=== PATIENT | male | born 1980 | race African-American/Black ===

== ENCOUNTER 2017-01-24 01:37 | Emergency (ER) | payer OTHER ==
[~2017-01-24] VITALS: Ht 175.3 cm; Wt 68.0 kg
[~2017-01-24 01:37] MED LIST: ACETAMINOPHEN-1 EAC1 PO; APAP/CODEI12 MG/5 M1 PO; AUGMENTIN 875875 M1 PO; AUGMENTIN 875875 MG PO; AZITHROMYCIN 2250 MG PO; BACTRIM DS TAB1 EACH PO; BACTROBAN NASAL1 GM NASAL; CHERACOL COUGH120 ML PO; CLEOCIN HCL300 MG PO; DOXYCYCLINE 10100 MG PO; FIORICET-COD 31 EACH PO; FLEXERIL; HIBICLENS120 ML TP; IBUPROFEN 400400 M2 PO; IBUPROFEN 600600 M1 PO; IBUPROFEN 800800 M1 PO; MEDROLDOSEPACK PO; NAPROSYN500 MG PO; NOHOMEMEDICATIONS; NORCO 5-325 TA1 EACH PO; NYQUIL D COLD295 ML PO; PEPCID40 MG PO; PREDNISONE 20 M20 MG PO; PRILOSEC20 MG PO; PROBIOTIC1 EAC1 PO; PROTONIX40 MG PO; PSEUDOEPHEDRIN120 M1 PO; SALINE NASAL SP30 ML NS; THERAFLU COL245.5 ML PO; VALIUM5 MG PO; ZPAK PO
[2017-01-24 02:14] VITALS: BP 110/69
== END 2017-01-24 02:25 | disposition short-term general hospital (02) ==
LOC: ER 01:37
DX: S82.451B Displaced comminuted fracture of shaft of right fibula, initial encounter for open fracture type I or II (principal); K21.9 Gastro-esophageal reflux disease without esophagitis; F17.210 Nicotine dependence, cigarettes, uncomplicated; F12.10 Cannabis abuse, uncomplicated; W34.00XA Accidental discharge from unspecified firearms or gun, initial encounter; Y93.89 Activity, other specified; Y92.89 Other specified places as the place of occurrence of the external cause; Y99.9 Unspecified external cause status

== ENCOUNTER 2017-02-13 11:29 | Emergency (ER) | payer OTHER ==
[~2017-02-13] VITALS: Ht 175.3 cm; Wt 70.3 kg
[2017-02-13 12:06] LABS: ABSOLUTE NEUTROPHILS 11.6 thou/uL (1.4-8.2); BASOPHILS 0.2 % (0.0-2.0); EOSINOPHILS 0.1 % (0.0-3.0); HEMATOCRIT 49.7 % (42.0-52.0); HEMOGLOBIN 17.2 gm/dL (14.0-18.0); LYMPHOCYTES 9.2 % (24.0-44.0); MCH 33.9 pg (26.0-34.0); MCHC 34.7 g/dL (28.0-37.0); MCV 97.6 fL (80.0-100.0); MONOCYTES 6.8 % (1.0-8.0); PLATELET COUNT 335 thou/uL (150-400); POLYS 83.7 % (36.0-66.0); RBC 5.09 mil/uL (4.50-6.00); RDW 12.8 % (10.5-14.5); WBC 13.9 thou/uL (4.0-11.0)
[2017-02-13 12:07] LABS: MANUAL DIFF NO
[2017-02-13 12:11] LABS: CALCIUM 9.9 mg/dL (8.5-10.1); CREATININE 0.7 mg/dL (0.7-1.3)
[2017-02-13] MEDS ORDERED: BENTYL 10 MG CA10 M1 PO (12:52)
[2017-02-13] MEDS ORDERED: ZOFRAN ODT8 MG PO (12:52)
[2017-02-13 13:12] VITALS: BP 120/75
== END 2017-02-13 13:15 | disposition home or self-care (01) ==
LOC: ER 11:29
PROVIDERS: Emergency Medicine
DX: K52.9 Noninfective gastroenteritis and colitis, unspecified (principal); K21.9 Gastro-esophageal reflux disease without esophagitis; F17.210 Nicotine dependence, cigarettes, uncomplicated; F10.99 Alcohol use, unspecified with unspecified alcohol-induced disorder

== ENCOUNTER 2017-02-18 20:39 | Emergency (ER) | payer OTHER ==
[~2017-02-18] VITALS: Ht 172.7 cm; Wt 68.0 kg
[~2017-02-18 20:39] MED LIST changes: +BENTYL 10 MG CA10 M1 PO; +ZOFRAN ODT8 MG PO
[2017-02-18 21:13] LABS: HEMATOCRIT 44.6 % (42.0-52.0); HEMOGLOBIN 15.8 gm/dL (14.0-18.0); MCH 34.1 pg (26.0-34.0); MCHC 35.4 g/dL (28.0-37.0); MCV 96.2 fL (80.0-100.0); PLATELET COUNT 276 thou/uL (150-400); RBC 4.63 mil/uL (4.50-6.00); RDW 12.7 % (10.5-14.5); WBC 10.3 thou/uL (4.0-11.0)
[2017-02-18 21:14] LABS: MANUAL DIFF YES
[2017-02-18 21:23] LABS: CALCIUM 9.8 mg/dL (8.5-10.1); CREATININE 0.8 mg/dL (0.7-1.3); POTASSIUM 3.8 mmol/L (3.5-5.1)
[2017-02-18 21:29] LABS: ALBUMIN 3.9 g/dL (3.4-5.0); TOTAL BILIRUBIN 0.3 mg/dL (<0.1-1.0); TOTAL PROTEIN 8.3 g/dL (6.4-8.2)
[2017-02-18 21:33] LABS: TOTAL CELL COUNT 100
[2017-02-18 22:21] LABS: URINE BILIRUBIN NEGATIVE (Negative); URINE BLOOD NEGATIVE (Negative); URINE COLOR YELLOW; URINE GLUCOSE-RANDOM* NEGATIVE (Negative); URINE KETONES NEGATIVE (Negative); URINE LEUKOCYTES-REFLEX NEGATIVE (Negative); URINE PROTEIN (DIPSTICK) NEGATIVE (Negative); URINE SPECIFIC GRAVITY <= 1.005 (1.003-1.035); URINE UROBILINOGEN 0.2 E.U./dl (0.2-1.0)
[2017-02-18] MEDS ORDERED: PEPCID20 MG PO (22:26)
[2017-02-18 23:04] VITALS: BP 112/60
== END 2017-02-18 23:05 | disposition home or self-care (01) ==
LOC: ER 20:39
PROVIDERS: Physician Assistant
DX: K21.9 Gastro-esophageal reflux disease without esophagitis (principal); F17.210 Nicotine dependence, cigarettes, uncomplicated; F10.99 Alcohol use, unspecified with unspecified alcohol-induced disorder

== ENCOUNTER 2017-05-10 22:51 | Emergency (ER) | payer OTHER ==
[~2017-05-10] VITALS: Ht 175.3 cm; Wt 70.3 kg
[~2017-05-10 22:51] MED LIST changes: +PEPCID20 MG PO
[2017-05-10] MEDS ORDERED: ASPIRIN EC325 M1 PO (23:00)
[2017-05-11] MEDS ORDERED: ASPIRIN81 M2 PO (00:39)
[2017-05-11] MEDS ORDERED: NORCO 5-325 TA1 EACH PO (00:39)
[2017-05-11] MEDS ORDERED: LIPITOR 20 MG T20 M1 PO (00:39)
[2017-05-11 01:53] LABS: ABSOLUTE NEUTROPHILS 4.8 thou/uL (1.4-8.2); BASOPHILS 1.1 % (0.0-2.0); HEMATOCRIT 42.5 % (42.0-52.0); HEMOGLOBIN 14.7 gm/dL (14.0-18.0); LYMPHOCYTES 34.7 % (24.0-44.0); MCH 33.1 pg (26.0-34.0); MCHC 34.6 g/dL (28.0-37.0); MCV 95.6 fL (80.0-100.0); MONOCYTES 9.9 % (1.0-8.0); PLATELET COUNT 291 thou/uL (150-400); POLYS 53.3 % (36.0-66.0); RBC 4.45 mil/uL (4.50-6.00); RDW 13.8 % (10.5-14.5)
[2017-05-11 01:55] LABS: MANUAL DIFF NO
[2017-05-11 02:00] LABS: CALCIUM 9.2 mg/dL (8.5-10.1); CREATININE 0.9 mg/dL (0.7-1.3); POTASSIUM 3.9 mmol/L (3.5-5.1)
[2017-05-11 03:52] VITALS: BP 143/87
== END 2017-05-11 03:53 | disposition home or self-care (01) ==
LOC: ER 22:51
PROVIDERS: Emergency Medicine
DX: I73.9 Peripheral vascular disease, unspecified (principal); K21.9 Gastro-esophageal reflux disease without esophagitis; F17.210 Nicotine dependence, cigarettes, uncomplicated; F10.99 Alcohol use, unspecified with unspecified alcohol-induced disorder

== ENCOUNTER 2017-06-17 22:35 | Emergency (ER) | payer BC ==
[~2017-06-17] VITALS: Ht 172.7 cm; Wt 63.5 kg
[~2017-06-17 22:35] MED LIST changes: +ASPIRIN EC325 M1 PO; +ASPIRIN81 M2 PO; +LIPITOR 20 MG T20 M1 PO
[2017-06-17] MEDS ORDERED: OXYCODONE HCL 55 MG PO (23:41)
[2017-06-17] MEDS ORDERED: DOXYCYCLINE 10100 MG PO (23:41)
[2017-06-18 00:05] VITALS: BP 128/83
== END 2017-06-18 00:12 | disposition home or self-care (01) ==
LOC: ER 22:35
DX: S81.801A Unspecified open wound, right lower leg, initial encounter (principal); M25.571 Pain in right ankle and joints of right foot; K21.9 Gastro-esophageal reflux disease without esophagitis; F17.210 Nicotine dependence, cigarettes, uncomplicated; F10.99 Alcohol use, unspecified with unspecified alcohol-induced disorder; Z98.890 Other specified postprocedural states; X58.XXXA Exposure to other specified factors, initial encounter; Y93.89 Activity, other specified; Y92.89 Other specified places as the place of occurrence of the external cause; Y99.8 Other external cause status

== ENCOUNTER 2017-08-19 20:56 | Inpatient (IN) | payer BC ==
[~2017-08-19] VITALS: Ht 172.7 cm; Wt 52.1 kg
[~2017-08-19 20:56] MED LIST changes: +OXYCODONE HCL 55 MG PO
[2017-08-19 20:58] VITALS: BP 134/89
[2017-08-19 21:33] LABS: ABSOLUTE NEUTROPHILS 6.9 thou/uL (1.4-8.2); BASOPHILS 0.4 % (0.0-2.0); EOSINOPHILS 0.8 % (0.0-3.0); HEMATOCRIT 39.2 % (42.0-52.0); HEMOGLOBIN 13.4 gm/dL (14.0-18.0); LYMPHOCYTES 18.5 % (24.0-44.0); MCH 32.5 pg (26.0-34.0); MCHC 34.1 g/dL (28.0-37.0); MCV 95.2 fL (80.0-100.0); MONOCYTES 7.8 % (1.0-8.0); PLATELET COUNT 388 thou/uL (150-400); POLYS 72.5 % (36.0-66.0); RBC 4.11 mil/uL (4.50-6.00); RDW 14.2 % (10.5-14.5); WBC 9.5 thou/uL (4.0-11.0)
[2017-08-19 21:34] LABS: MANUAL DIFF NO
[2017-08-19 21:43] LABS: CALCIUM 9.9 mg/dL (8.5-10.1); CREATININE 0.5 mg/dL (0.7-1.3); POTASSIUM 4.3 mmol/L (3.5-5.1)
[2017-08-19 22:00] LABS: ALBUMIN 4.3 g/dL (3.4-5.0); TOTAL BILIRUBIN 0.5 mg/dL (<0.1-1.0); TOTAL PROTEIN 7.5 g/dL (6.4-8.2)
[2017-08-19 23:20] LABS: URINE BILIRUBIN NEGATIVE (Negative); URINE BLOOD TRACE (Negative); URINE COLOR YELLOW; URINE GLUCOSE-RANDOM* NEGATIVE (Negative); URINE KETONES 1+ (Negative); URINE LEUKOCYTES-REFLEX NEGATIVE (Negative); URINE PROTEIN (DIPSTICK) NEGATIVE (Negative); URINE SPECIFIC GRAVITY 1.015 (1.005-1.035); URINE UROBILINOGEN 0.2 E.U./dl (0.2-1.0)
[2017-08-20 01:10] VITALS: BP 110/67
[2017-08-20 01:59] VITALS: BP 140/81
[2017-08-20 07:55] VITALS: BP 122/84
[2017-08-20 18:26] VITALS: BP 122/84
== END 2017-08-20 18:35 | disposition home or self-care (01) | DRG 388 ==
LOC: ER 20:56 → EROBS 23:25 → ER 23:48 → 3W 23:48 → EROBS 23:48 → 3W 08-20 01:11 → EROBS 08-20 01:12 → 3W 08-20 01:12
PROVIDERS: Physician Assistant
DX: K56.600 Partial intestinal obstruction, unspecified as to cause (principal); E43 Unspecified severe protein-calorie malnutrition; Z68.1 Body mass index [BMI] 19.9 or less, adult; K21.9 Gastro-esophageal reflux disease without esophagitis; F17.210 Nicotine dependence, cigarettes, uncomplicated; Z79.82 Long term (current) use of aspirin; Z82.49 Family history of ischemic heart disease and other diseases of the circulatory system